=== PATIENT | male | born 2000 | race Hispanic/Latino ===

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

== ENCOUNTER 2022-02-03 02:20 | Emergency (ER) | payer SELFPAY ==
[2022-02-03 02:30] VITALS: BP 121/63
== END 2022-02-03 23:15 | disposition left against medical advice (07) ==
LOC: ED 02:20
DX: H92.02 Otalgia, left ear (principal); Z53.21 Procedure and treatment not carried out due to patient leaving prior to being seen by health care provider